=== PATIENT | male | born 1970 | race Caucasian/White ===

== ENCOUNTER 2022-05-31 22:56 | Emergency (ER) | payer OTHER ==
[~2022-05-31] VITALS: Ht 175.3 cm; Wt 68.0 kg
--- NOTE | 2022-05-31 23:09 | NUR ---
Note carter in EDM - 05/31/22 at 2352 by GIANLUCA [id number] FROM [facility]F FOUND MORE ALTERED THEN NORMAL. LWKT 2029. NON RESPONSIVE TO PAINFUL STIMULI. PT A/OX4. TOLERATING R/A WELL WITH NO SOB. CONNECTED PT TO POX AND MONITOR. SAFETY MEASURES IN PLACE
--- NOTE | 2022-05-31 23:15 | NUR ---
TO ER BED 6. [id number] FROM SNF FOUND MORE ALTERED THEN NORMAL. LWKT 2029. AAOX0. NON RESPONSIVE TO PAIN. GTUBE AND GALAN IN PLACE UPON ARRIVAL. TRACHE PT, NO VENTILATOR. CONNECTED TO MONITOR. AWAITING MD HERNANDEZ
--- NOTE | 2022-05-31 23:29 | NUR ---
URINE COLLECTED AND SENT TO LAB
--- NOTE | 2022-05-31 23:30 | NUR ---
LAB AT BEDSIDE
[2022-05-31 23:41] LABS: BASOPHILS % (AUTO) 0.3 % (0.0-2.0); EOSINOPHILS % (AUTO) 0.3 % (0.0-6.0); HEMATOCRIT 28 % (39-51); HEMOGLOBIN 9.5 g/dL (13.5-17.5); LYMPHOCYTES # (AUTO) 1.4 K/uL (0.8-4.8); LYMPHOCYTES % (AUTO) 14.4 % (20.0-44.0); MEAN CORPUSCULAR HGB CONC 34 g/dl (31.0-36.0); MEAN CORPUSCULAR VOLUME 94 fL (80-96); MONOCYTES # (AUTO) 0.5 K/uL (0.1-1.30); MONOCYTES % (AUTO) 5.2 % (2.0-12.0); NEUTROPHILS % (AUTO) 79.8 % (43.0-81.0); PLATELET COUNT (AUTO) 123 K/uL (150-450); RED BLOOD CELL COUNT(AUTO) 2.99 MIL/uL (4.5-6.0)
[2022-05-31 23:45] LABS: BILIRUBIN,URINE NEGATIVE (NEGATIVE); COLOR,URINE YELLOW (YELLOW); LEUKOCYTE ESTERASE ,URINE TRACE (NEGATIVE); NITRITE, URINE POSITIVE (NEGATIVE); PROTEIN,URINE NEGATIVE (NEGATIVE); UGLUCOSE NEGATIVE (NEGATIVE); UROBILINOGEN,URINE 0.2 EU/dL (0.2)
[2022-05-31 23:48] LABS: CALCIUM, SERUM 7.9 mg/dL (8.5-10.1); CARBON DIOXIDE 30 mmol/L (21-32); CHLORIDE 101 mmol/L (98-107); CREATININE 0.5 mg/dL (0.6-1.3); GLUCOSE 176 mg/dL (74-106); SODIUM SERUM 137 mmol/L (136-145); UREA NITROGEN, BLOOD 20 mg/dL (7-18)
[2022-05-31 23:52] LABS: BACTERIA,URINE Rare /HPF (None Seen); SQUAMOUS EPITHELIAL CELL,UR Few /HPF (None Seen)
[2022-05-31 23:55] LABS: ALANINE AMINOTRANSFERASE 22 U/L (12-78); ALBUMIN 2.8 g/dL (3.4-5.0); ALCOHOL, BLOOD < 3 mg/dL (0-0); ALKALINE PHOSPHATASE 80 U/L (46-116); ASPARTATE AMINOTRANSFERASE 28 U/L (15-37); BILIRUBIN,DIRECT 0.1 mg/dL (0.0-0.2); BILIRUBIN,TOTAL 0.3 mg/dL (0.2-1.0); TOTAL PROTEIN, SERUM 6.1 g/dL (6.4-8.2)
--- NOTE | 2022-06-01 00:10 | NUR ---
(DAMASO) FOR UPDATES
--- NOTE | 2022-06-01 00:33 | NUR ---
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
--- NOTE | 2022-06-01 00:43 | NUR ---
PT TAKEN TO CT VIA TRAVIS
--- NOTE | 2022-06-01 01:31 | NUR ---
COVID SWAB COLLECTED AND SENT TO LAB
--- NOTE | 2022-06-01 01:31 | NUR ---
IV LINE ESTABLISHED, [id number]. BLOOD CULTURES OBTAINED
--- NOTE | 2022-06-01 04:09 | NUR ---
DR FLOR PAGED PER DR HOWARD
--- NOTE | 2022-06-01 04:43 | NUR ---
DR HALLE DE JESUS.
[2022-06-01] MEDS ORDERED: LEVETIRACETAM (500MG) 500 MG/5 ML VIAL IV ONE (05:16)
--- NOTE | 2022-06-01 05:25 | NUR ---
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
--- NOTE | 2022-06-01 05:26 | NUR ---
PT ACCEPTED AT [facility] BY DR SUGGS. PENDING TRANSPORT ETA.
[2022-06-01] MEDS ORDERED: IV Sodium Chloride 3% 500 ML 500 ML IV ONE ×2 (05:29→05:30)
[2022-06-01] MEDS ORDERED: LEVETIRACETAM (500MG) 1,000 MG in IV NS 0.9% 100 ML IV SCH (05:30)
--- NOTE | 2022-06-01 05:30 | NUR ---
LEFT VOICE MESSAGE TO ORIANA (FATHER) [phone] REGARDING PT TRANSFERRING TO [facility]
[2022-06-01 05:31] VITALS: BP 138/94
--- NOTE | 2022-06-01 05:49 | NUR ---
SPOKE TO DAMASO AND INFORMED HIM OF TRANSFER TO [facility]
--- NOTE | 2022-06-01 06:30 | NUR ---
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
== END 2022-06-01 06:30 | disposition short-term general hospital (02) ==
LOC: ER 23:02
DX: I61.5 Nontraumatic intracerebral hemorrhage, intraventricular (principal); I69.954 Hemiplegia and hemiparesis following unspecified cerebrovascular disease affecting left non-dominant side; R94.31 Abnormal electrocardiogram [ECG] [EKG]; N39.0 Urinary tract infection, site not specified; E78.5 Hyperlipidemia, unspecified; I48.91 Unspecified atrial fibrillation; Z93.1 Gastrostomy status; Z93.0 Tracheostomy status; E11.9 Type 2 diabetes mellitus without complications; R41.82 Altered mental status, unspecified
CPT/HCPCS: 36415 ×2; 70450; 71045; 80048; 80076; 80307; 80320; 81001; 84484; 85025; 85730; 86850; 87040; 87077; 87086; 87186; 87426; 93005; 96365; 99291; C9803; J1953; J3490 ×2; J7030; G0480